=== PATIENT | female | born 1990 | race Caucasian/White ===

== ENCOUNTER 2017-03-31 13:53 | Outpatient (CLI) | payer OTHER | END 2017-03-31 16:45 | disposition home or self-care (01) | LOC: OBT 13:53 → L-D 13:53 → OBT 16:45 | DX: O26.893 Other specified pregnancy related conditions, third trimester (principal); R10.2 Pelvic and perineal pain; M54.5 Low back pain; Z3A.31 31 weeks gestation of pregnancy | CPT/HCPCS: 76817; 76818 ==

== ENCOUNTER 2017-04-05 20:51 | Inpatient (IN) | payer OTHER ==
[2017-04-05 21:20] LABS: ADD MAN DIFF? NO
[2017-04-05 21:21] LABS: WHITE BLOOD COUNT 13.9 10^3/ul (4.8-10.8)
[2017-04-05 21:21] LABS: BASOPHIL # 0.1 10^3/ul (0.0-0.1); BASOPHILS % 0.4 % (0.0-2.0); EOSINOPHILS # 0.1 10^3/ul (0.0-0.5); EOSINOPHILS % 0.9 % (0.0-7.0); HEMATOCRIT 37.2 % (37.0-47.0); HEMOGLOBIN 12.9 g/dl (12.0-16.0); LYMPHOCYTES # 2.6 10^3/ul (0.8-2.9); LYMPHOCYTES % 18.4 % (15.0-51.0); MEAN CORPUSCULAR HEMOGLOBIN 30.4 pg (29.0-33.0); MEAN CORPUSCULAR HGB CONC 34.7 g/dl (32.0-37.0); MEAN CORPUSCULAR VOLUME 87.5 fl (82.0-101.0); MEAN PLATELET VOLUME 10.3 fl (7.4-10.4); MONOCYTE # 0.8 10^3/ul (0.3-0.9); NEUTROPHIL # 10.1 10^3/ul (1.6-7.5); PLATELET COUNT 256 10^3/UL (140-415); RED BLOOD COUNT 4.25 10^6/ul (4.20-5.40); RED CELL DISTRIBUTION WIDTH 13.6 % (11.5-14.5)
[2017-04-05 21:39] LABS: ALANINE AMINOTRANSFERASE 33 IU/L (13-69); ALBUMIN 3.5 g/dl (3.3-4.9); ALBUMIN/GLOBULIN RATIO 1.12; ALKALINE PHOSPHATASE 105 IU/L (42-121); ANION GAP 12 (8-16); ASPARTATE AMINO TRANSFERASE 25 IU/L (15-46); BILIRUBIN,INDIRECT 0.6 mg/dl (0-1.1); BILIRUBIN,TOTAL 0.6 mg/dl (0.2-1.3); BLOOD UREA NITROGEN 8 mg/dl (7-20); CARBON DIOXIDE 23 mmol/L (21-31); CHLORIDE 106 mmol/L (97-110); CREATININE 0.65 mg/dl (0.44-1.00); GLUCOSE 96 mg/dl (70-220); POTASSIUM 3.7 mmol/L (3.5-5.1); SODIUM 137 mmol/L (135-144); TOTAL PROTEIN 6.6 g/dl (6.1-8.1)
[2017-04-05 21:42] LABS: INR 0.92; PROTIME 12.4 Sec (11.9-14.9)
[2017-04-05 21:42] LABS: HEMOGLOBIN A1C 5.1 % (0-5.9)
[2017-04-05 21:43] LABS: PARTIAL THROMBOPLASTIN TIME 25.6 Sec (25.0-35.0)
[2017-04-05] MEDS: LORAZEPAM 2 MG INJ IV (21:52)
[2017-04-05] MEDS: SOD CHLORIDE 0.9% 1,000 ML IV (21:54)
[2017-04-05 22:00] LABS: TROPONIN-I < 0.012 ng/ml (0.00-0.12)
[2017-04-06] MEDS: LACTATED RINGER'S 500 ML IV (02:15)
[2017-04-06] MEDS: HYDROCODONE/APAP (5/325) TAB PO ×2 (03:12→08:00)
[2017-04-06] MEDS: TERBUTALINE 1 MG/ML INJ SC (03:22)
[2017-04-06] MEDS: BETAMET NA PHOS/AC(6 MG/ML) 5ML INJ IM (03:24)
[2017-04-06] MEDS: LACTATED RINGER'S 1,000 ML IV ×2 (06:55→21:00)
[2017-04-06] MEDS ORDERED: OXYTOCIN 30 UNITS/LR 500 ML IV (10:00)
[2017-04-06] MEDS ORDERED: METHYLERGONOVINE 0.2 MG INJ IM (10:00)
[2017-04-06] MEDS ORDERED: CARBOPROST 250 MCG INJ IM (10:00)
[2017-04-06] MEDS ORDERED: MISOPROSTOL 200 MCG TAB PR (10:00)
[2017-04-06] MEDS ORDERED: LIDOCAINE 1% (MPF) 30 ML INJ INJ (10:00)
[2017-04-06 10:13] LABS: AMPHETAMINE/METHAMPHETAMINE Negative (NEGATIVE); BARBITURATES Negative (NEGATIVE); BENZODIAZEPINES Negative (NEGATIVE); CANNABINOIDS Negative (NEGATIVE); COCAINE Negative (NEGATIVE); OPIATES Positive (NEGATIVE)
[2017-04-06 10:23] LABS: ADD UMIC YES; UR ASCORBIC ACID NEGATIVE (NEGATIVE); UR BILIRUBIN (Dip) NEGATIVE (NEGATIVE); UR BLOOD (Dip) 2+ mg/dL (NEGATIVE); UR CLARITY CLEAR (CLEAR); UR COLOR YELLOW (YELLOW); UR GLUCOSE (Dip) NEGATIVE (NEGATIVE); UR KETONES (Dip) 1+ mg/dL (NEGATIVE); UR LEUKOCYTE ESTERASE (Dip) NEGATIVE Leu/ul (NEGATIVE); UR MUCUS MODERATE /HPF (NONE SEEN); UR NITRITE (Dip) NEGATIVE (NEGATIVE); UR RBC 1 /HPF (0-5); UR SPECIFIC GRAVITY (Dip) 1.015 (1.003-1.030); UR TOTAL PROTEIN (Dip) NEGATIVE (NEGATIVE); UR UROBILINOGEN (Dip) NEGATIVE (NEGATIVE); UR WBC 0 /HPF (0-5)
[2017-04-06] MEDS: MAGNESIUM SULFATE 4 GM/100 ML 100 ML IVPB (10:56)
[2017-04-06] MEDS: MAGNESIUM SULFATE 20 GM/500 ML 500 ML IV (11:27)
[2017-04-06 15:00] LABS: RAPID PLASMA REAGIN NONREACTIVE (NR)
[2017-04-06 18:12] LABS: ADD UMIC YES; UR ASCORBIC ACID NEGATIVE (NEGATIVE); UR BILIRUBIN (Dip) NEGATIVE (NEGATIVE); UR BLOOD (Dip) 1+ mg/dL (NEGATIVE); UR CLARITY CLEAR (CLEAR); UR COLOR STRAW (YELLOW); UR GLUCOSE (Dip) NEGATIVE (NEGATIVE); UR KETONES (Dip) 1+ mg/dL (NEGATIVE); UR LEUKOCYTE ESTERASE (Dip) NEGATIVE Leu/ul (NEGATIVE); UR NITRITE (Dip) NEGATIVE (NEGATIVE); UR RBC 4 /HPF (0-5); UR SPECIFIC GRAVITY (Dip) 1.009 (1.003-1.030); UR TOTAL PROTEIN (Dip) NEGATIVE (NEGATIVE); UR UROBILINOGEN (Dip) NEGATIVE (NEGATIVE); UR WBC 1 /HPF (0-5)
[2017-04-06 18:55] LABS: MAGNESIUM 4.3 mg/dl (1.7-2.5)
[2017-04-07 00:40] LABS: MAGNESIUM 4.3 mg/dl (1.7-2.5)
[2017-04-07] MEDS: BETAMET NA PHOS/AC(6 MG/ML) 5ML INJ IM (03:26)
[2017-04-07] MEDS: MAGNESIUM SULFATE 20 GM/500 ML 500 ML IV (03:29)
[2017-04-07 07:15] LABS: MAGNESIUM 4.3 mg/dl (1.7-2.5)
[2017-04-07] MEDS: LACTATED RINGER'S 1,000 ML IV ×3 (09:44→23:57)
[2017-04-07 14:21] LABS: ADD MAN DIFF? NO
[2017-04-07 14:26] LABS: WHITE BLOOD COUNT 15.4 10^3/ul (4.8-10.8)
[2017-04-07 14:26] LABS: BASOPHILS % 0.2 % (0.0-2.0); LYMPHOCYTES # 0.9 10^3/ul (0.8-2.9); LYMPHOCYTES % 6.1 % (15.0-51.0); MEAN CORPUSCULAR HEMOGLOBIN 30.4 pg (29.0-33.0); MEAN CORPUSCULAR HGB CONC 33.3 g/dl (32.0-37.0); MEAN CORPUSCULAR VOLUME 91.1 fl (82.0-101.0); MEAN PLATELET VOLUME 10.4 fl (7.4-10.4); MONOCYTE # 0.7 10^3/ul (0.3-0.9); MONOCYTES % 4.5 % (0.0-11.0); NEUTROPHILS % 84.6 % (39.0-77.0); PLATELET COUNT 254 10^3/UL (140-415); RED BLOOD COUNT 3.95 10^6/ul (4.20-5.40)
[2017-04-08] MEDS: NIFEdipine 10 MG CAP PO ×5 (00:05→23:57)
[2017-04-08] MEDS: LACTATED RINGER'S 1,000 ML IV ×4 (00:11→18:18)
[2017-04-09] MEDS: LACTATED RINGER'S 1,000 ML IV (02:18)
[2017-04-09] MEDS: NIFEdipine 10 MG CAP PO (06:08)
== END 2017-04-09 09:50 | disposition home or self-care (01) | DRG 781 ==
LOC: L-D 04-06 02:00 → E/R 20:51
DX: O99.343 Other mental disorders complicating pregnancy, third trimester (principal); R20.0 Anesthesia of skin; Z3A.32 32 weeks gestation of pregnancy; R10.30 Lower abdominal pain, unspecified
CPT/HCPCS: 36415; 70450; 70544; 70549; 70551; 71045; 76705; 76815; 76817; 76818; 80053; 80307; 81001; 82731; 82962; 83036; 83735; 84484; 85025; 85610; 85730; 86592; 86850; 86900; 86901; 87086; 93005; 96374; 99285-25

== ENCOUNTER 2017-04-15 12:16 | Outpatient (CLI) | payer OTHER | END 2017-04-15 13:50 | disposition home or self-care (01) | LOC: OBT 12:16 → L-D 12:17 → OBT 13:50 | DX: O62.9 Abnormality of forces of labor, unspecified (principal); Z3A.34 34 weeks gestation of pregnancy | CPT/HCPCS: Z7500 ==

== ENCOUNTER 2017-05-20 18:25 | Inpatient (IN) | payer OTHER ==
[2017-05-20] MEDS: LACTATED RINGER'S 1,000 ML IV ×2 (20:24→22:21)
[2017-05-20] MEDS: TERBUTALINE 1 MG/ML INJ SC ×2 (20:29→21:16)
[2017-05-20] MEDS ORDERED: MISOPROSTOL 200 MCG TAB PR (21:30)
[2017-05-20] MEDS ORDERED: METHYLERGONOVINE 0.2 MG INJ IM (21:30)
[2017-05-20] MEDS ORDERED: CEFAZOLIN 2 GM/50 ML (PMX) 50 ML IV (21:30)
[2017-05-20] MEDS ORDERED: OXYTOCIN 30 UNITS/LR 500 ML IV (21:30)
[2017-05-20] MEDS ORDERED: CARBOPROST 250 MCG INJ IM (21:30)
[2017-05-20 21:34] LABS: ADD MAN DIFF? NO
[2017-05-20 21:36] LABS: WHITE BLOOD COUNT 10.7 10^3/ul (4.8-10.8)
[2017-05-20 21:36] LABS: BASOPHIL # 0.1 10^3/ul (0.0-0.1); BASOPHILS % 0.5 % (0.0-2.0); EOSINOPHILS # 0.1 10^3/ul (0.0-0.5); EOSINOPHILS % 0.7 % (0.0-7.0); HEMATOCRIT 39.8 % (37.0-47.0); HEMOGLOBIN 13.5 g/dl (12.0-16.0); LYMPHOCYTES # 2.1 10^3/ul (0.8-2.9); LYMPHOCYTES % 19.4 % (15.0-51.0); MEAN CORPUSCULAR HGB CONC 33.9 g/dl (32.0-37.0); MEAN CORPUSCULAR VOLUME 88.4 fl (82.0-101.0); MONOCYTE # 0.6 10^3/ul (0.3-0.9); MONOCYTES % 5.9 % (0.0-11.0); NEUTROPHIL # 7.5 10^3/ul (1.6-7.5); NEUTROPHILS % 70.1 % (39.0-77.0); PLATELET COUNT 234 10^3/UL (140-415)
[2017-05-20 21:53] LABS: PROTIME 12.2 Sec (11.9-14.9)
[2017-05-20 21:54] LABS: PARTIAL THROMBOPLASTIN TIME 25.5 Sec (25.0-35.0)
[2017-05-20 22:24] LABS: HEPATITIS B SURFACE ANTIGEN NEGATIVE (NEGATIVE)
[2017-05-21 01:50] LABS: AMPHETAMINE/METHAMPHETAMINE Negative (NEGATIVE); BARBITURATES Negative (NEGATIVE); BENZODIAZEPINES Negative (NEGATIVE); CANNABINOIDS Negative (NEGATIVE); COCAINE Negative (NEGATIVE); OPIATES Negative (NEGATIVE)
[2017-05-21] MEDS: LACTATED RINGER'S 1,000 ML IV ×2 (05:55→20:50)
[2017-05-21] MEDS ORDERED: morphine SULFATE/PF (10 MG/10 ML) INJ (08:21)
[2017-05-21] MEDS ORDERED: OXYTOCIN 10 UNIT INJ (08:24)
[2017-05-21] MEDS ORDERED: BUPIVACAINE 0.75%/DEXT (SPINAL) 2 ML INJ (08:40)
[2017-05-21] MEDS: ONDANSETRON 4 MG INJ IV (08:55)
[2017-05-21] MEDS: FAMOTIDINE 20 MG INJ IV (08:55)
[2017-05-21] MEDS: METOCLOPRAMIDE 10 MG INJ IV (08:55)
[2017-05-21] MEDS ORDERED: HYDROmorphONE (0.2 MG/ML) 10ML SYG IV ×3 (10:00)
[2017-05-21] MEDS ORDERED: FENTAnyl 50 MCG/ML VIAL IV ×2 (10:00)
[2017-05-21] MEDS ORDERED: ONDANSETRON 4 MG INJ IV ×2 (10:00)
[2017-05-21] MEDS ORDERED: KETOROLAC 30 MG INJ IV (10:00)
[2017-05-21] MEDS ORDERED: MEPERIDINE 25 MG INJ IV (10:00)
[2017-05-21] MEDS ORDERED: METOCLOPRAMIDE 10 MG INJ IV (10:00)
[2017-05-21] MEDS ORDERED: ZOLPIDEM 5 MG TAB PO (10:00)
[2017-05-21] MEDS ORDERED: DIPHENHYDRAMINE 50 MG INJ IV ×2 (10:00)
[2017-05-21] MEDS ORDERED: NALOXONE (0.4 MG/ML) INJ IV (10:00)
[2017-05-21] MEDS ORDERED: HYDROmorphONE 0.5 MG/0.5 ML SYG IV ×2 (10:00)
[2017-05-21] MEDS: OXYTOCIN 30 UNITS/LR 500 ML IV ×4 (11:14→20:50)
[2017-05-21 11:54] LABS: ALANINE AMINOTRANSFERASE 22 IU/L (13-69); ALBUMIN/GLOBULIN RATIO 1.07; ALKALINE PHOSPHATASE 126 IU/L (42-121); ANION GAP 10 (8-16); ASPARTATE AMINO TRANSFERASE 23 IU/L (15-46); BILIRUBIN,INDIRECT 0.6 mg/dl (0-1.1); BILIRUBIN,TOTAL 0.6 mg/dl (0.2-1.3); BLOOD UREA NITROGEN 5 mg/dl (7-20); CALCIUM 8.4 mg/dl (8.4-10.2); CARBON DIOXIDE 26 mmol/L (21-31); CHLORIDE 105 mmol/L (97-110); CREATININE 0.49 mg/dl (0.44-1.00); GLUCOSE 97 mg/dl (70-220); POTASSIUM 3.8 mmol/L (3.5-5.1); SODIUM 137 mmol/L (135-144); TOTAL PROTEIN 5.8 g/dl (6.1-8.1)
[2017-05-21] MEDS ORDERED: HYDROCODONE/APAP (5/325) TAB PO ×2 (12:00)
[2017-05-21] MEDS ORDERED: METHYLERGONOVINE 0.2 MG INJ IM (12:00)
[2017-05-21] MEDS ORDERED: MISOPROSTOL 200 MCG TAB PR (12:00)
[2017-05-21] MEDS ORDERED: OXYTOCIN 30 UNITS/LR 500 ML IV (12:00)
[2017-05-21] MEDS ORDERED: CARBOPROST 250 MCG INJ IM (12:00)
[2017-05-21] MEDS ORDERED: OXYCODONE/ACETAMINOPHEN (5/325) TAB PO ×2 (12:00)
[2017-05-21] MEDS: IBUPROFEN 600 MG TAB PO ×2 (13:06→18:00)
[2017-05-21] MEDS: CEFAZOLIN 1 GM/50 ML (PMX) 50 ML IVPB (16:05)
[2017-05-21 19:05] LABS: RAPID PLASMA REAGIN NONREACTIVE (NR)
[2017-05-21] MEDS: SENNA/DOCUSATE NA (8.6MG/50MG) TAB PO (21:00)
[2017-05-22] MEDS: KETOROLAC 30 MG INJ IV (01:27)
[2017-05-22] MEDS: LACTATED RINGER'S 1,000 ML IV ×3 (05:12→20:00)
[2017-05-22] MEDS: IBUPROFEN 600 MG TAB PO ×4 (06:00→18:13)
[2017-05-22 09:06] LABS: ADD MAN DIFF? NO
[2017-05-22 09:08] LABS: WHITE BLOOD COUNT 12.6 10^3/ul (4.8-10.8)
[2017-05-22 09:08] LABS: BASOPHILS % 0.3 % (0.0-2.0); EOSINOPHILS # 0.1 10^3/ul (0.0-0.5); EOSINOPHILS % 0.5 % (0.0-7.0); HEMATOCRIT 31.6 % (37.0-47.0); HEMOGLOBIN 10.7 g/dl (12.0-16.0); LYMPHOCYTES # 1.4 10^3/ul (0.8-2.9); LYMPHOCYTES % 10.9 % (15.0-51.0); MEAN CORPUSCULAR HGB CONC 33.9 g/dl (32.0-37.0); MEAN CORPUSCULAR VOLUME 88.5 fl (82.0-101.0); MEAN PLATELET VOLUME 10.8 fl (7.4-10.4); MONOCYTE # 0.7 10^3/ul (0.3-0.9); MONOCYTES % 5.7 % (0.0-11.0); NEUTROPHIL # 10.2 10^3/ul (1.6-7.5); NEUTROPHILS % 81.2 % (39.0-77.0); PLATELET COUNT 195 10^3/UL (140-415); RED BLOOD COUNT 3.57 10^6/ul (4.20-5.40); RED CELL DISTRIBUTION WIDTH 14.2 % (11.5-14.5)
[2017-05-22] MEDS: SENNA/DOCUSATE NA (8.6MG/50MG) TAB PO ×2 (09:54→21:29)
[2017-05-22] MEDS: INFLUENZA VIRUS VACCINE 0.5 ML SYG IM* (19:22)
[2017-05-23] MEDS: LANOLIN 7 GM TUBE TOP (00:02)
[2017-05-23] MEDS: IBUPROFEN 600 MG TAB PO ×4 (00:02→18:32)
[2017-05-23] MEDS: SENNA/DOCUSATE NA (8.6MG/50MG) TAB PO ×2 (09:46→21:09)
[2017-05-23] MEDS ORDERED: NA PHOSPHATE/BIPHOS 133 ML ENEMA PR (10:30)
[2017-05-24] MEDS: IBUPROFEN 600 MG TAB PO ×4 (00:36→14:54)
[2017-05-24] MEDS: NA PHOSPHATE/BIPHOS 133 ML ENEMA PR (10:30)
[2017-05-24] MEDS: DIPHTH/TET/ACEL PERTUSS (ADULT) 0.5 ML VIAL IM* (10:57)
[2017-05-24] MEDS: MEASLES,MUMPS,RUBELLA VACCINE INJ SC* (10:58)
[2017-05-24] MEDS: SENNA/DOCUSATE NA (8.6MG/50MG) TAB PO (10:58)
== END 2017-05-24 17:30 | disposition home or self-care (01) | DRG 766 ==
LOC: OBT 18:25 → L-D 05-21 08:28 → OBT 21:40 → L-D 21:40 → PP1 05-21 12:38
PROVIDERS: Obstetrics & Gynecology
PROC: 10D00Z1 Extraction of Products of Conception, Low, Open Approach (ICD-10-PCS; principal; 2017-05-21 09:00)
PROC: 0UB70ZZ Excision of Bilateral Fallopian Tubes, Open Approach (ICD-10-PCS; 2017-05-21 09:00)
DX: O82 Encounter for cesarean delivery without indication (principal); Z37.0 Single live birth; Z3A.38 38 weeks gestation of pregnancy; Z30.2 Encounter for sterilization; Z87.59 Personal history of other complications of pregnancy, childbirth and the puerperium
CPT/HCPCS: 36415; 80053; 80307; 85025; 85610; 85730; 86592; 86850; 86900; 86901; 87340; 88302; 90715; 96360; 96372; 99464

== ENCOUNTER 2018-03-22 10:13 | Emergency (ER) | payer OTHER ==
[2018-03-22 10:43] LABS: ADD MAN DIFF? NO
[2018-03-22 10:47] LABS: WHITE BLOOD COUNT 4.9 10^3/ul (4.8-10.8)
[2018-03-22 10:47] LABS: BASOPHILS % 0.6 % (0.0-2.0); EOSINOPHILS # 0.1 10^3/ul (0.0-0.5); EOSINOPHILS % 2.9 % (0.0-7.0); HEMOGLOBIN 14.6 g/dl (12.0-16.0); LYMPHOCYTES # 1.3 10^3/ul (0.8-2.9); LYMPHOCYTES % 26.7 % (15.0-51.0); MEAN CORPUSCULAR HEMOGLOBIN 29.3 pg (29.0-33.0); MEAN CORPUSCULAR HGB CONC 32.4 g/dl (32.0-37.0); MEAN CORPUSCULAR VOLUME 90.4 fl (82.0-101.0); MEAN PLATELET VOLUME 10.5 fl (7.4-10.4); MONOCYTE # 0.3 10^3/ul (0.3-0.9); MONOCYTES % 6.7 % (0.0-11.0); NEUTROPHIL # 3.1 10^3/ul (1.6-7.5); NEUTROPHILS % 62.9 % (39.0-77.0); PLATELET COUNT 204 10^3/UL (140-415); RED BLOOD COUNT 4.98 10^6/ul (4.20-5.40); RED CELL DISTRIBUTION WIDTH 13.4 % (11.5-14.5)
[2018-03-22 11:01] LABS: HEMOGLOBIN A1C 5.5 % (0-5.9)
[2018-03-22] MEDS: DIPHENHYDRAMINE 50 MG INJ IV (11:02)
[2018-03-22] MEDS: SOD CHLORIDE 0.9% 1,000 ML IV (11:02)
[2018-03-22] MEDS: PROCHLORPERAZINE 10 MG INJ IV (11:02)
[2018-03-22] MEDS: HYDROmorphONE 1 MG/ML SYG IV (11:03)
[2018-03-22 11:06] LABS: INR 0.83; PROTIME 11.5 Sec (11.9-14.9); PT RATIO 0.9
[2018-03-22 11:07] LABS: ANION GAP 11 (5-13); BLOOD UREA NITROGEN 13 mg/dl (7-20); CALCIUM 9.6 mg/dl (8.4-10.2); CARBON DIOXIDE 25 mmol/L (21-31); CHLORIDE 104 mmol/L (97-110); CHOLESTEROL 229 mg/dl (100-200); CREATINE KINASE 42 IU/L (23-200); CREATININE 0.64 mg/dl (0.44-1.00); Estimated GFR > 60 mL/min (>60); GLUCOSE 91 mg/dl (70-220); HDL CHOLESTEROL 38 mg/dl (33-83); LDL CHOLESTEROL,CALCULATED 173 mg/dl; POTASSIUM 4.3 mmol/L (3.5-5.1); SODIUM 140 mmol/L (135-144); TRIGLYCERIDES 91 mg/dl (0-149)
[2018-03-22 11:19] LABS: CK INDEX 0.5; CK-MB < 0.22 ng/ml (0.0-2.4); TROPONIN-I < 0.012 ng/ml (0.000-0.120)
[2018-03-22] MEDS ORDERED: HYDROmorphONE 1 MG/ML SYG IV (13:44)
[2018-03-22] MEDS ORDERED: KETOROLAC 30 MG INJ IV (13:44)
[2018-03-22] MEDS ORDERED: ONDANSETRON 4 MG INJ IV (13:44)
[2018-03-22] MEDS: LORAZEPAM 2 MG INJ IV (17:11)
== END 2018-03-23 00:59 | disposition home or self-care (01) ==
LOC: E/R 03-23 00:59
DX: G43.109 Migraine with aura, not intractable, without status migrainosus (principal); R40.2142 Coma scale, eyes open, spontaneous, at arrival to emergency department; R40.2362 Coma scale, best motor response, obeys commands, at arrival to emergency department; R40.2252 Coma scale, best verbal response, oriented, at arrival to emergency department; R06.02 Shortness of breath
CPT/HCPCS: 36415; 70450; 70544; 70551; 71045; 80048; 80061; 82550; 82553; 83036; 84484; 84703; 85025; 85610; 85730; 93005; 96374; 96375; 99285-25